=== PATIENT | male | born 2000 | race Hispanic/Latino ===

== ENCOUNTER 2019-05-05 17:40 | Emergency (ER) | payer MEDICAID, OTHER | END 2019-05-05 18:35 | disposition home or self-care (01) | LOC: EDH 17:40 | DX: F41.1 Generalized anxiety disorder (principal); R19.7 Diarrhea, unspecified; R11.0 Nausea; R53.83 Other fatigue; F32.9 Major depressive disorder, single episode, unspecified; Z87.891 Personal history of nicotine dependence ==